=== PATIENT | male | born 1940 | race Caucasian/White ===

== ENCOUNTER 2020-04-20 11:35 | Inpatient (IN) | payer OTHER ==
[~2020-04-20] VITALS: Ht 172.7 cm; Wt 63.5 kg
[~2020-04-20 11:35] MED LIST: ASPIRIN CHEWABL81 MG PO; COLACE 100MG C100 MG PO; FISH OIL 1,0001 EACH PO; LOPRESSOR 25 MG25 MG PO; LOVENOX SY40 MG/0.4 SQ; MULTIVITAMINS1 EAC1 PO; NORVASC 5 MG TAB5 MG PO; OXYCODONE HCL5 MG PO; PROTONIX40 MG PO
[2020-04-20 12:43] LABS: HEMOGLOBIN 14.5 gm/dl (14.0-17.5); RED BLOOD COUNT 4.15 M/UL (4.20-5.50); WHITE BLOOD COUNT 11.2 K/UL (4.5-11.0)
[2020-04-20] MEDS ORDERED: IPRAT-ALBUT 0.5-3 ML INH (18:40)
[2020-04-20] MEDS ORDERED: VITAMIN B-121000 MC2 SL (18:41)
[2020-04-20] MEDS ORDERED: RESTORIL 15 MG15 MG PO (18:42)
[2020-04-20] MEDS ORDERED: REMERON 15 MG T15 MG PO (18:42)
[2020-04-20] MEDS ORDERED: TAMSULOSIN HCL0.4 MG PO (18:43)
[2020-04-20] MEDS ORDERED: NEURONTIN300 MG PO (18:43)
[2020-04-20 19:31] LABS: HEMOGLOBIN 12.9 gm/dl (14.0-17.5)
[2020-04-21 04:41] LABS: HEMOGLOBIN 13.1 gm/dl (14.0-17.5); RED BLOOD COUNT 3.83 M/UL (4.20-5.50); WHITE BLOOD COUNT 10.6 K/UL (4.5-11.0)
[2020-04-21 11:09] LABS: HEMOGLOBIN 13.8 gm/dl (14.0-17.5)
[2020-04-21 19:29] LABS: HEMOGLOBIN 12.7 gm/dl (14.0-17.5)
[2020-04-22 04:43] LABS: HEMOGLOBIN 12.1 gm/dl (14.0-17.5); RED BLOOD COUNT 3.52 M/UL (4.20-5.50); WHITE BLOOD COUNT 12.1 K/UL (4.5-11.0)
[2020-04-22 14:26] LABS: HEMOGLOBIN 11.8 gm/dl (14.0-17.5)
[2020-04-23 03:17] LABS: HEMOGLOBIN 11.9 gm/dl (14.0-17.5); RED BLOOD COUNT 3.44 M/UL (4.20-5.50)
[2020-04-24 03:32] LABS: HEMOGLOBIN 11.6 gm/dl (14.0-17.5); RED BLOOD COUNT 3.35 M/UL (4.20-5.50); WHITE BLOOD COUNT 11.4 K/UL (4.5-11.0)
[2020-04-25 03:40] LABS: HEMOGLOBIN 11.8 gm/dl (14.0-17.5); RED BLOOD COUNT 3.42 M/UL (4.20-5.50)
[2020-04-25 03:42] LABS: WHITE BLOOD COUNT 14.3 K/UL (4.5-11.0)
--- NOTE | 2020-04-26 01:01 | NUR ---
WHILE ASSESSING PATIENT AT THE BEGINNING OF SHIFT, NOTICED PATIENT WAS EXHIBITING SIGNS OF STRUGGLE. CALLED RESPIRATORY THERAPIST WHO SUGGESTED ABG. ABG REVEALED METABOLIC ACIDOSIS. CALLED DR OLIVERA, ORDERS RECEIVED AND IMPLEMENTED. PATIENT IS RESTING MORE COMFORTABLY AT THIS TIME. WILL CONTINUE TO MONITOR.
--- NOTE | 2020-04-26 03:17 | NUR ---
REQUESTED THAT DR OLIVERA LISTEN TO PT'S LUNGS; AFTER LISTENING TO PATIENT'S LUNGS, STATED PATIENT IS WHEEZING AND NEEDS A NEBULIZER TREATMENT AND A 1 LITER BOLUS OF NORMAL SALINE NOW FOR ANURIA. 20G IV INSERTED BY TOM WHIPPLE INTO PATIENT'S LEFT FOREARM, BOLUS BEGUN. PATIENT APPEARS AGITATED AND IS ATTEMPTING TO GET OUT OF BED. BED ALARM IS ON. WILL CONTINUE TO MONITOR.
[2020-04-26 03:19] LABS: RED BLOOD COUNT 3.47 M/UL (4.20-5.50); WHITE BLOOD COUNT 14.1 K/UL (4.5-11.0)
[2020-04-27 04:25] LABS: HEMOGLOBIN 11.3 gm/dl (14.0-17.5); RED BLOOD COUNT 3.29 M/UL (4.20-5.50); WHITE BLOOD COUNT 14.9 K/UL (4.5-11.0)
--- NOTE | 2020-04-28 06:49 | NUR ---
ERIC DIXON'S WAS VERIFIED BY TWO NURSES (THEO LUNDBERG RN AND CIPRIANO HERRING RN) BY AUSCULTATING LUNG SOUNDS, FEELING FOR CAROTID PULSE, AND TELEMETRY LEADS. ELECTRODYNAMICIST NEW AND DR. RAMON WAS NOTIFIED OF THE PATIENT'S . LOVE MARC ([phone]), THE COORDINATOR CONTACTED FROM [facility] WAS NOTIFIED OF MR. DIXON'S . THE PATIENT'S FAMILY MEMBER ANNI LEW WAS NOTIFIED OF MR. DIXON'S AND REQUESTED THAT [facility]. [facility] WAS CALLED BUT THEY HADN'T ANSWERED. THE HOME WILL BE CONTACTED BY THE [facility] NURSE.
--- NOTE | 2020-04-28 08:31 | NUR ---
PT AT 06:24 THIS A.M., HOME CALLED
--- NOTE | 2020-04-28 08:38 | NUR ---
HOME HERE TO PICK BODY UP, DAUGHTER--ANNI LEW CALLED
== END 2020-04-28 06:20 | disposition expired | DRG 871 ==
LOC: ER1 11:35 → PROG CARE 18:44 → CDU 18:44 → PROG CARE 19:52
PROVIDERS: Family Medicine; Internal Medicine; Physician Assistant Medical; ADMIT Family Medicine
DX: A41.9 Sepsis, unspecified organism (principal); J69.0 Pneumonitis due to inhalation of food and vomit; G93.41 Metabolic encephalopathy; I21.A1 Myocardial infarction type 2; N17.0 Acute kidney failure with tubular necrosis; R65.21 Severe sepsis with septic shock; K83.1 Obstruction of bile duct; C79.51 Secondary malignant neoplasm of bone; C78.7 Secondary malignant neoplasm of liver and intrahepatic bile duct; M62.82 Rhabdomyolysis; M84.58XA Pathological fracture in neoplastic disease, other specified site, initial encounter for fracture; E87.2 Acidosis; J96.11 Chronic respiratory failure with hypoxia; R64 Cachexia; Z87.891 Personal history of nicotine dependence; Z51.5 Encounter for palliative care; Z20.828 Contact with and (suspected) exposure to other viral communicable diseases; R00.0 Tachycardia, unspecified; Z85.118 Personal history of other malignant neoplasm of bronchus and lung; Z85.528 Personal history of other malignant neoplasm of kidney; E83.52 Hypercalcemia; R34 Anuria and oliguria; E80.6 Other disorders of bilirubin metabolism; Z85.51 Personal history of malignant neoplasm of bladder; E87.5 Hyperkalemia; R74.01 Elevation of levels of liver transaminase levels; R62.7 Adult failure to thrive; N50.1 Vascular disorders of male genital organs; J44.9 Chronic obstructive pulmonary disease, unspecified; N40.0 Benign prostatic hyperplasia without lower urinary tract symptoms; K57.90 Diverticulosis of intestine, part unspecified, without perforation or abscess without bleeding; K21.9 Gastro-esophageal reflux disease without esophagitis; Z85.038 Personal history of other malignant neoplasm of large intestine; Z83.3 Family history of diabetes mellitus; Z80.9 Family history of malignant neoplasm, unspecified; Z87.442 Personal history of urinary calculi; Z79.899 Other long term (current) drug therapy; R73.9 Hyperglycemia, unspecified
CPT/HCPCS: ECHO; 36415; 36600; 51701; 70450; 71045; 80048; 80053; 80076; 80202; 81001; 82140; 82533; 82550; 82553; 82803; 82962; 83605; 83735; 83880; 84100; 84484; 85014; 85018; 85025; 85027; 85610; 87040; 87086; 92610; 93005; 93306; 94640; 94664; 94760; 99285; J0692; J1630; J2060; J2270; J3370; J7030; J7070; U0002